=== PATIENT | male | born 1990 | race Caucasian/White ===

== ENCOUNTER 2019-08-10 20:11 | Emergency (ER) | payer MEDICAID ==
[~2019-08-10] VITALS: Ht 170.2 cm; Wt 71.3 kg
[2019-08-10 20:36] VITALS: BP 143/84
[2019-08-10] MEDS ORDERED: MAGNESIUM/ALUMINUM HYDROXIDE/SIMETHICONE 30ML UDC PO STA (20:54)
[2019-08-10] MEDS ORDERED: VISCOUS LIDOCAINE 2% 15 ML UDC PO STA (20:54)
== END 2019-08-10 21:45 | disposition home or self-care (01) ==
LOC: ER 20:11
DX: R06.02 Shortness of breath (principal)
CPT/HCPCS: 71045; 93005; 99283